=== PATIENT | female | born 1985 | race Two or more races ===

== ENCOUNTER 2017-12-27 23:26 | Emergency (ER) | payer MEDICAID, OTHER ==
[~2017-12-27] VITALS: Ht 170.2 cm; Wt 79.4 kg
[2017-12-27 23:28] VITALS: BP 114/58
== END 2017-12-28 00:02 | disposition left against medical advice (07) ==
LOC: ER 23:31
DX: R06.02 Shortness of breath (principal); R07.89 Other chest pain; Z53.21 Procedure and treatment not carried out due to patient leaving prior to being seen by health care provider
CPT/HCPCS: 93005

== ENCOUNTER 2021-12-09 10:28 | Emergency (ER) | payer OTHER, MEDICAID ==
[~2021-12-09] VITALS: Ht 170.2 cm; Wt 91.7 kg
[2021-12-09] MEDS ORDERED: diphenhdrAMINE HCL 50 MG/1 ML VL IV ONE (11:00)
[2021-12-09] MEDS ORDERED: FAMOTIDINE (10MG/ML) 2ML VL IV ONE (11:00)
[2021-12-09] MEDS ORDERED: SODIUM CHLORIDE 0.9% 1,000 ML IV ONE (11:00)
[2021-12-09] MEDS ORDERED: methylPREDNISolone SOD SUCC 125 MG/2 ML VL IV ONE (11:00)
[2021-12-09 11:34] LABS: Basophils # (auto) 0 10 ^3/uL (0-0.2); Basophils % (auto) 0.5 % (0.0-2.0); Eosinophils # (auto) 0 10 ^3/uL (0-0.8); Eosinophils % (auto) 1.5 % (0.0-7.0); Hematocrit 42.6 % (36.0-46.0); Hemoglobin 14.2 g/dL (12.2-16.2); Lymphocytes % (auto) 35.5 % (10.0-50.0); Mean Corpuscular Hemoglobin 28.6 pg (28.0-32.0); Mean Corpuscular Hgb Conc. 33.3 g/dL (32.0-36.0); Mean Corpuscular Volume 86.1 fL (80.0-100.0); Monocytes # (auto) 0.4 10 ^3/uL (0-1.3); Monocytes % (auto) 15.8 % (0.0-12.0); Neutrophils # (auto) 1.3 10 ^3/uL (1.6-8.6); Neutrophils % (auto) 46.7 % (37.0-80.0); Nucleated Red Blood Cells % 0.4 %; Red Blood Cells 4.94 10^6/uL (4.0-5.20); Red Cell Distribution Width 13.6 % (11.8-14.3); White Blood Cell 2.8 10^3/uL (4.4-10.8)
[2021-12-09 12:03] LABS: Albumin 3.3 g/dL (3.4-5.0); Calcium 8.1 mg/dL (8.5-10.1); Potassium 4.1 mmol/L (3.5-5.1)
[2021-12-09 12:07] LABS: BUN/Creatinine Ratio 17.2; Bilirubin, Total 0.6 mg/dL (0.2-1.0); Total Protein 6.6 g/dL (6.4-8.2)
[2021-12-09 12:57] LABS: INR 0.97 (0.9-1.15); Partial Thromboplastin Time 27.5 sec (24.6-33.4)
[2021-12-09 13:13] LABS: Alcohol, Urine < 3.0 mg/dL (0-10); Amphetamine Screen, Urine NEGATIVE (NEGATIVE); Barbiturate Scree,Urine NEGATIVE (NEGATIVE); Benzodiazephine Screen, Urine NEGATIVE (NEGATIVE); Cannabinoid Screen, Urine NEGATIVE (NEGATIVE); Cocaine Screen, Urine NEGATIVE (NEGATIVE); Opiate Scree,Urine NEGATIVE (NEGATIVE); Phencyclidine Screen, Urine NEGATIVE (NEGATIVE)
[2021-12-09] MEDS ORDERED: METH4PAK PO (13:45)
[2021-12-09] MEDS ORDERED: PER60TP TOP (13:45)
[2021-12-09 14:11] VITALS: BP 110/77
[2021-12-09 14:53] LABS: Urine Bacteria NONE SEEN /hpf (None Seen); Urine Blood Negative /uL (Negative); Urine Hyaline Cast FEW /lpf (0 - 2); Urine Mucus FEW (None Seen); Urine Specific Gravity 1.028 (1.001-1.035); Urine WBC 15 /hpf (0 - 5)
== END 2021-12-09 14:09 | disposition home or self-care (01) ==
LOC: ER 10:28
DX: T78.40XA Allergy, unspecified, initial encounter (principal); B86 Scabies; X58.XXXA Exposure to other specified factors, initial encounter
CPT/HCPCS: 36415; 80053; 80307; 81001; 85025; 85610; 85730; 96361; 96374; 96375; 99284; J1200; J2930; J3490; J7030

== ENCOUNTER 2022-01-17 14:39 | Emergency (ER) | payer OTHER, MEDICAID ==
[~2022-01-17] VITALS: Ht 170.2 cm; Wt 90.0 kg
[~2022-01-17 14:39] MED LIST: METH4PAK PO; PER60TP TOP
[2022-01-17 17:44] VITALS: BP 137/85
[2022-01-17] MEDS ORDERED: ACETAMINOPHEN 325 MG TAB PO ONE (18:30)
[2022-01-17] MEDS ORDERED: ACET-1158 PO (18:35)
[2022-01-17] MEDS ORDERED: CYCL-837 PO (18:35)
== END 2022-01-17 20:48 | disposition home or self-care (01) ==
LOC: ER 14:39
DX: S46.911A Strain of unspecified muscle, fascia and tendon at shoulder and upper arm level, right arm, initial encounter (principal); S39.012A Strain of muscle, fascia and tendon of lower back, initial encounter; S16.1XXA Strain of muscle, fascia and tendon at neck level, initial encounter; I11.0 Hypertensive heart disease with heart failure; I50.9 Heart failure, unspecified; F15.10 Other stimulant abuse, uncomplicated; V43.52XA Car driver injured in collision with other type car in traffic accident, initial encounter; Y93.89 Activity, other specified; Y92.488 Other paved roadways as the place of occurrence of the external cause; Y99.8 Other external cause status
CPT/HCPCS: 72100; 73030

== ENCOUNTER 2023-10-08 06:43 | Emergency (ER) | payer OTHER ==
[~2023-10-08] VITALS: Ht 170.2 cm; Wt 95.5 kg
[~2023-10-08 06:43] MED LIST changes: +ACET500T58 PO; +CYCL-837 PO
[2023-10-08 06:45] VITALS: BP 146/96; RESP 20; O2SAT 97
[2023-10-08 06:52] VITALS: PULSE 83
[2023-10-08 07:11] LABS: Basophils # (auto) 0.1 10 ^3/uL (0-0.2); Eosinophils # (auto) 0.1 10 ^3/uL (0-0.8); Eosinophils % (auto) 1.2 % (0.0-7.0); Hematocrit 39.8 % (36.0-46.0); Hemoglobin 13.9 g/dL (12.2-16.2); Lymphocytes # (auto) 1.5 10 ^3/uL (0.4-5.4); Lymphocytes % (auto) 29.7 % (10.0-50.0); Mean Corpuscular Hemoglobin 30.1 pg (28.0-32.0); Mean Corpuscular Hgb Conc. 34.9 g/dL (32.0-36.0); Mean Corpuscular Volume 86.3 fL (80.0-100.0); Monocytes # (auto) 0.4 10 ^3/uL (0-1.3); Monocytes % (auto) 8.6 % (0.0-12.0); Neutrophils # (auto) 3.1 10 ^3/uL (1.6-8.6); Neutrophils % (auto) 59.5 % (37.0-80.0); Nucleated Red Blood Cells % 0.1 %; Red Blood Cells 4.61 10^6/uL (4.0-5.20); White Blood Cell 5.1 10^3/uL (4.4-10.8)
[2023-10-08 07:34] LABS: Alanine Aminotransferase 39 U/L (7-40); Albumin 4.2 g/dL (3.2-4.8); Alkaline Phosphatase 91 U/L (46-116); Anion Gap 5 (5-15); Aspartate Aminotransferase 17 U/L (13-40); Calcium 9.3 mg/dL (8.7-10.4); Carbon Dioxide 25 mmol/L (20-30); Chloride 108 mmol/L (98-107); Glucose 107 mg/dL (74-106); Potassium 3.7 mmol/L (3.5-5.1); Sodium 138 mmol/L (136-145)
[2023-10-08 07:35] LABS: Bilirubin, Total 0.9 mg/dL (0.2-1.0); Total Protein 6.8 g/dL (5.7-8.2)
[2023-10-08] MEDS ORDERED: PRED10TA PO (08:14)
[2023-10-08] MEDS: HYDROcodone-ACET 10/325MG TAB PO ONE (08:36)
[2023-10-08 08:44] LABS: Blood Urea Nitrogen 11 mg/dL (9-23)
== END 2023-10-08 08:54 | disposition home or self-care (01) ==
LOC: ER 06:43
DX: S39.012A Strain of muscle, fascia and tendon of lower back, initial encounter (principal); R07.89 Other chest pain; I11.0 Hypertensive heart disease with heart failure; I50.9 Heart failure, unspecified; F15.90 Other stimulant use, unspecified, uncomplicated; Z79.899 Other long term (current) drug therapy; Z79.1 Long term (current) use of non-steroidal anti-inflammatories (NSAID); X58.XXXA Exposure to other specified factors, initial encounter; Y93.89 Activity, other specified; Y92.89 Other specified places as the place of occurrence of the external cause; Y99.8 Other external cause status
CPT/HCPCS: 36415; 71045; 80053; 84484; 85025; 85379; 93005